=== PATIENT | female | born 1970 | race Caucasian/White ===

== ENCOUNTER 2020-01-22 02:40 | Observation (INO) | payer OTHER, SELFPAY ==
[2020-01-22] VITALS (15 sets, daily range): BP systolic 117–182; BP diastolic 69–96; PULSE 57–74; RESP 14–20; TEMP 36.2–36.7; O2SAT 97–100; BMI 20.1
--- NOTE | ~2020-01-22 | XR_ITS ---
EXAMINATION: XR shoulder RT min 2V DATE: 01/22/2020 03:26 INDICATION: Chronic right shoulder pain. TECHNIQUE: 4 views of right shoulder were obtained. COMPARISON: None. FINDINGS: Bone alignment is normal. No fracture. Joint spaces are well maintained. There are changes of anterior fusion procedure in cervical spine. IMPRESSION: 1. Normal right shoulder. Reviewed, dictated and finalized at location A. IMPRESSION: 1. Normal right shoulder.
--- NOTE | ~2020-01-22 | CT_ITS ---
EXAMINATION: CT cervical spine wo con DATE: 01/22/2020 03:14 INDICATION: Seizure. TECHNIQUE: Computed tomography (CT) of the cervical spine was performed without intravenous contrast. Automated exposure control and iterative reconstruction technique were employed. The dose-length pro duct was 196.46 mGy-cm. COMPARISON: None FINDINGS: There is 4 degrees dextrocurvature of cervicothoracic spine. Vertebral body heights are nor mal. There are changes of anterior fusion procedure from C5 to C7 with healed interbody bone graft an d anterior plate and screws. Vertebral body heights are normal. There is mildly decreased disc height at C4-C5. The following disc levels are specifically discussed: C2-C3: There is mild left uncovertebral joint osteoarthritis. There is mild bilateral facet joint ost eoarthritis. There is no neural foraminal stenosis. There is no central canal stenosis. C3-C4: There is mild bilateral uncovertebral joint osteoarthritis. There is no facet joint osteoarthr itis. There is moderate bilateral neural foraminal stenosis. There is mild central canal stenosis. C4-C5: There is mild left uncovertebral joint osteoarthritis. There is moderate right and mild left f acet joint osteoarthritis. There is no neural foraminal stenosis. There is mild central canal stenosi s. C5-C6: There is mild bilateral uncovertebral joint hypertrophy. There is mild bilateral facet joint o steoarthritis. There is no neural foraminal stenosis. There is mild central canal stenosis. C6-C7: There is no uncovertebral joint hypertrophy. There is mild bilateral facet joint osteoarthriti s. There is no neural foraminal stenosis. There is no central canal stenosis. C7-T1: There is no uncovertebral joint osteoarthritis. There is severe bilateral facet joint osteoart hritis. There is mild bilateral neural foraminal stenosis. There is no central canal stenosis. IMPRESSION: 1. No fracture. 2. Anterior fusion procedure from C5 to C7. 3. Mild cervical spondylosis. Reviewed, dictated and finalized at location A.
--- NOTE | ~2020-01-22 | CT_ITS ---
EXAMINATION: CT thoracic lumbar wo con DATE: 01/22/2020 03:15 INDICATION: Seizure. TECHNIQUE: Computed tomography (CT) of the thoracic and lumbar spine was performed without intravenou s contrast. Automated exposure control and iterative reconstruction technique were employed. The dose -length product was 873.46 mGy-cm. COMPARISON: Lumbar spine radiographs 04/15/2004 FINDINGS: THORACIC SPINE CT: The lungs demonstrate mild atelectasis. There are small pleural effusions. There i s 6 degrees levocurvature of upper thoracic spine. There are chronic compression fractures of T4 and T5 with 1/5 loss of height. There is mildly decreased disc height at T4-T5. There is multilevel mild facet joint osteoarthritis. There is mild right neural foraminal stenosis at T7-T8. No central canal stenosis. LUMBAR SPINE CT: There are changes of cholecystectomy. Bone alignment is normal. Vertebral body heigh ts are normal. There is mildly decreased disc height at L3-L4. The following disc levels are specific ally discussed: L1-L2: The disc does not extend beyond the endplate margin. There is mild bilateral facet joint osteo arthritis. There is no neural foraminal stenosis. There is no central canal stenosis. L2-L3: The disc does not extend beyond the endplate margin. There is mild bilateral facet joint osteo arthritis. There is no neural foraminal stenosis. There is no central canal stenosis. L3-L4: The disc is bulging. There is moderate right and mild left facet joint osteoarthritis. There i s mild bilateral neural foraminal stenosis. There is mild central canal stenosis. L4-L5: The disc is bulging. There is mild bilateral facet joint osteoarthritis. There is mild bilater al neural foraminal stenosis. There is mild central canal stenosis. L5-S1: The disc is bulging. There is moderate bilateral facet joint osteoarthritis. There is mild maribell ateral neural foraminal stenosis. There is no central canal stenosis. IMPRESSION: 1. No acute fracture. 2. Mild thoracic and lumbar spondylosis. Reviewed, dictated and finalized at location A.
--- NOTE | 2020-01-22 01:40 | ADMGEN ---
This patient, Citlali Roche, was admitted to 2 Medical Room 249-01 @ 0115. Patient/family oriented to hospital policies and general routines including ID bracelet, bed and alarms, visiting hours, pain management, procedures, bathroom and other care routines, personal items, smoking policy, room service/diet, and visiting hours. Valuables list has been completed. Information on how to activate the Rapid Response Team has been discussed. Patient/Family are encouraged to report perceived risks to care and to ask questions if they do not understand what they are told or what they should do.
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
[2020-01-22 03:15] LABS: Add Urine Microscopic? NO; Appearance Urine Clear (Clear); Bilirubin Urine Negative (Negative); Blood Urine Negative (Negative); Color Urine Straw (Yellow); Glucose Urine UA Negative (Negative); Ketones Urine Negative (Negative); Leukocyte Esterase Ur Negative LEU/UL (Negative); Nitrate Urine Negative (Negative); Protein Urine Negative (Negative); Specific Grav Ur 1.009 (1.001-1.035); Urobilinogen Urine Negative mg/dL (<2.0)
[2020-01-22] MEDS: SODIUM CHLORIDE 0.9% IV 1,000 ML 100 ML IV CONT ×2 (05:39→15:16)
[2020-01-22] MEDS: ACETAMINOPHEN 325 MG TABLET 650 MG PO ×2 (05:40→12:54)
[2020-01-22] MEDS: FAMOTIDINE 20 MG TABLET PO ×2 (09:06→21:34)
[2020-01-22] MEDS: PHENYTOIN SODIUM 100 MG CAP PO ×3 (09:06→21:34)
[2020-01-22] MEDS: amLODIPine BESYLATE 2.5 MG TABLET PO ×2 (09:07→12:55)
[2020-01-22] MEDS: OXcarbazepine 300 MG TABLET 600 MG PO ×2 (09:07→21:33)
[2020-01-22] MEDS: levETIRAcetam ORAL SOL 500 MG/5 ML UDC 1500 MG PO ×2 (09:08→21:33)
[2020-01-22] MEDS: IPRATROPIUM BR 0.02% INH SOLN 0.5 MG/2.5 ML VIAL INHALATION ×3 (09:50→20:50)
[2020-01-22] MEDS: ALBUTEROL SULFATE NEB 2.5 MG/0.5 ML INH 5 MG INHALATION ×3 (09:50→20:50)
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
[2020-01-22] MEDS: hydrALAZINE 5 MG TABLET PO ×3 (12:55→21:34)
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
[2020-01-22] MEDS: AMITRIPTYLINE HCL 25 MG TABLET 75 MG PO (21:33)
[2020-01-23] VITALS (10 sets, daily range): BP systolic 117–138; BP diastolic 64–80; PULSE 57–80; RESP 12–20; TEMP 36.1–36.6; O2SAT 97–100
[2020-01-23] MEDS: SODIUM CHLORIDE 0.9% IV 1,000 ML 100 ML IV CONT ×2 (01:56→13:02)
[2020-01-23] MEDS: ALBUTEROL SULFATE NEB 2.5 MG/0.5 ML INH 5 MG INHALATION ×3 (02:46→13:49)
[2020-01-23] MEDS: IPRATROPIUM BR 0.02% INH SOLN 0.5 MG/2.5 ML VIAL INHALATION ×3 (02:46→13:50)
[2020-01-23] MEDS: PHENYTOIN SODIUM 100 MG CAP PO ×2 (05:51→15:17)
[2020-01-23] MEDS: ACETAMINOPHEN 325 MG TABLET 650 MG PO (08:12)
[2020-01-23] MEDS: levETIRAcetam ORAL SOL 500 MG/5 ML UDC 1500 MG PO (08:17)
[2020-01-23] MEDS: OXcarbazepine 300 MG TABLET 600 MG PO (08:17)
[2020-01-23] MEDS: FAMOTIDINE 20 MG TABLET PO (08:18)
[2020-01-23] MEDS: hydrALAZINE 5 MG TABLET PO ×2 (08:18→13:02)
[2020-01-23] MEDS: amLODIPine BESYLATE 5 MG TABLET PO (08:18)
--- NOTE | 2020-01-23 09:03 | PC.NURSE ---
EEG on hold per patient request. Patient states she has a vagus nerve stimulator and it has not been that long ago since her last EEG. Wants to consult with Dr Neumann.
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
[2020-01-26 10:26] LABS: Levetiracetam Keppra 4.9 mcg/mL (12.0-46.0)
== END 2020-01-23 16:21 | disposition home or self-care (01) ==
PROVIDERS: Physician Assistant; Admitting Provider Internal Medicine; PCP Internal Medicine Infectious Disease; Visit Provider Internal Medicine
DX: G40.919 Epilepsy, unspecified, intractable, without status epilepticus (principal); T74.91XA Unspecified adult maltreatment, confirmed, initial encounter; M54.6 Pain in thoracic spine; I10 Essential (primary) hypertension; R11.2 Nausea with vomiting, unspecified; F31.9 Bipolar disorder, unspecified; M47.814 Spondylosis without myelopathy or radiculopathy, thoracic region; M47.816 Spondylosis without myelopathy or radiculopathy, lumbar region; M47.812 Spondylosis without myelopathy or radiculopathy, cervical region; J44.9 Chronic obstructive pulmonary disease, unspecified; R26.9 Unspecified abnormalities of gait and mobility; D64.9 Anemia, unspecified; F41.9 Anxiety disorder, unspecified; G89.4 Chronic pain syndrome; Z86.73 Personal history of transient ischemic attack (TIA), and cerebral infarction without residual deficits; Z87.891 Personal history of nicotine dependence; F12.90 Cannabis use, unspecified, uncomplicated; Z98.1 Arthrodesis status
CPT/HCPCS: 36415; 72125; 72128; 72131; 73030; 80177; 81003; 94640; 96360; 96361; 96374; 96376; A9270; G0378; G0379; J0131; J7030; L0140